=== PATIENT | female | born 1955 | race Two or more races ===

== ENCOUNTER 2018-02-25 15:42 | Inpatient (IN) | payer MEDICARE, MEDICAID ==
[~2018-02-25] VITALS: Ht 162.6 cm; Wt 83.9 kg
[2018-02-25] MEDS ORDERED: TRAZ-144 PO (16:18)
[2018-02-25] MEDS ORDERED: CHLO100T24 PO (16:18)
[2018-02-25] MEDS ORDERED: ESCI10TA55 PO (16:18)
[2018-02-25] MEDS ORDERED: HYDR-3026 PO ×2 (16:18→16:22)
[2018-02-25] MEDS ORDERED: LEVO25TA9 PO (16:18)
[2018-02-25 16:42] LABS: *BILIRUBIN,URIN NEGATIVE (NEGATIVE); *BLOOD, URINE NEGATIVE (NEGATIVE); *COLOR,URINE YELLOW (YELLOW); *KETONES,URINE NEGATIVE (NEGATIVE); *PROTEIN,URINE NEGATIVE (NEGATIVE); *UROBILINOGEN,URINE 0.2 E.U./dl (NORMAL); LEUKOCYTE ESTERASE ,URINE TRACE (NEGATIVE); NITRITE, URINE NEGATIVE (NEGATIVE); UGLUCOSE NEGATIVE (NEGATIVE)
[2018-02-25 16:46] LABS: BASOPHILS % (AUTO) 0.4 % (0.0-2.0); HEMATOCRIT 40.7 % (31.2-41.9); HEMOGLOBIN 13.8 g/dL (10.9-14.3); LYMPHOCYTES # (AUTO) 2.7 K/uL (20.0-40.0); MEAN CORPUSCULAR HEMOGLOBIN 28.7 uug (24.7-32.8); MEAN CORPUSCULAR HGB CONC 34 g/dL (32.3-35.6); MEAN CORPUSCULAR VOLUME 84.7 fL (75.5-95.3); MONOCYTES # (AUTO) 0.6 K/uL (2.0-10.0); MONOCYTES % (AUTO) 8.2 % (0.0-11.0); NEUTROPHILS % (AUTO) 54.4 % (38.5-71.5); PLATELET COUNT (AUTO) 268 K/uL (179-408); RED BLOOD CELL COUNT(AUTO) 4.81 MIL/uL (3.63-4.92); WHITE BLOOD COUNT (AUTO) 7.4 K/uL (3.8-11.8)
[2018-02-25 16:47] LABS: *AMPHETAMINE, URINE NEGATIVE (NEGATIVE); *BARBITURATE, URINE NEGATIVE (NEGATIVE); *CANNABINOID, URINE NEGATIVE (NEGATIVE); *COCCAINE, URINE NEGATIVE (NEGATIVE); *OPIATE, URINE NEGATIVE (NEGATIVE); *PHENCYCLIDINE SCREEN,URINE NEGATIVE (NEGATIVE)
[2018-02-25 16:51] LABS: CARBON DIOXIDE 29 mmol/L (21-32); CHLORIDE 103 mmol/L (98-107); CREATININE 0.9 mg/dL (0.6-1.3); GLUCOSE 107 mg/dL (74-106); POTASSIUM 3.8 mmol/L (3.5-5.1); UREA NITROGEN, BLOOD 17 mg/dL (7-18)
--- NOTE | 2018-02-25 16:53 | NUR ---
Patient is resting comfortably in bed with eyes closed, family at the bedside.
[2018-02-25 16:56] LABS: ALANINE AMINOTRANSFERASE 21 U/L (14-59); ALKALINE PHOSPHATASE 90 U/L (50-136); ASPARTATE AMINOTRANSFERASE 13 U/L (15-37); BILIRUBIN,DIRECT 0.1 mg/dL (0.0-0.2); BILIRUBIN,TOTAL 0.5 mg/dL (0.2-1.0); ETHANOL < 3 MG/DL (0-0); TOTAL PROTEIN, SERUM 7.4 g/dL (6.4-8.2)
[2018-02-25 16:57] LABS: ACETAMINOPHEN < 2.0 ug/mL (10-30)
[2018-02-25 17:06] LABS: *CLARITY,URINE SLIGHTLY HAZY (CLEAR)
[2018-02-25 17:09] LABS: BACTERIA,URINE FEW /HPF (NONE SEEN); MUCUS,URINE MANY /LPF (0-FEW); RBC,URINE 0-3 /HPF (0-3); SQUAMOUS EPITHELIAL CELL,UR MODERATE /HPF (NONE SEEN)
--- NOTE | 2018-02-25 17:12 | NUR ---
Pt is medically cleared by Dr Schaeffer. Anton Goff from [facility] called for psych eval ETA is one hour.
--- NOTE | 2018-02-25 17:18 | NUR ---
Pt offered food/fluids, drank 8 oz of water.
--- NOTE | 2018-02-25 18:25 | NUR ---
Anton Goff from [facility] at the bedside for psych eval.
--- NOTE | 2018-02-25 18:50 | NUR ---
PT PLACED ON HOLD BY [facility] AIR SAMPLER, 5150 GD.
--- NOTE | 2018-02-25 19:10 | NUR ---
SHIFT REPORT GIVEN TO BASIA ADKINS, I RELINQUISH CARE OF PT AT THIS TIME.
--- NOTE | 2018-02-25 21:00 | NUR ---
Report given to Reji ADKINS U.
[2018-02-25 22:15] VITALS: BP 137/79
[2018-02-25] MEDS ORDERED: MAGNESIUM HYDROXIDE 30 ML LIQUID UDC PO PRN (22:45)
[2018-02-25] MEDS ORDERED: MAG HYDROX/AL HYDROX/SIMETH 30 ML LIQUID UDC PO PRN (22:45)
[2018-02-25] MEDS ORDERED: ACETAMINOPHEN 325 MG TABLET PO PRN (22:45)
[2018-02-25] MEDS: TEMAZEPAM 7.5 MG CAPSULE PO PRN (23:31)
--- NOTE | 2018-02-26 00:30 | NUR ---
received to care, from the emergency room, on a 72 hour hold, for gravely disabled. according to the chart, she was brought in by her sister and brother in law, who are her caregivers. she has been non compliant with her medications, and increasing internal stimuli. she had been "on the road" with her family, traveling in an , for the last 6 months, and had been unable to secure psychiatric care, and her new medications have not been effective in controlling her bizarre, and sometimes violent behavior. she had also been unable to sleep, or eat properly. upon arrival, she was pleasant, but confused. oriented to name only. denied si, or desire to harm self. agreed to contract for safety, while in the hospital. stated she hears voices at times, but not presently. she says the voices tell her "bad things", but could not elaborate. she was assisted with a shower, and PM care. PRN restoril was given for insomnia, at 2331, and she went to bed. as of 29, she remains asleep. no distress noted. will continue to monitor closely.
--- NOTE | 2018-02-26 06:00 | NUR ---
slept 6.5 hours, total. continues to sleep. no distress noted.
[2018-02-26 07:30] VITALS: BP 132/75
--- NOTE | 2018-02-26 11:21 | NUR ---
Firearms Report: Asphalt Heater Operator completed and submitted [employer] Firearms Report on 02/26/18.
[2018-02-26] MEDS: LORAZEPAM 1 MG TABLET PO PRN ×2 (11:41→20:05)
--- NOTE | 2018-02-26 11:44 | NUR ---
Gps/Email Engineer- Extremely anxious, crying spells noted, requesting to have her clothes back, offered luke schneider, ativan 1 mg given po. compliance noted, continue to monitor safety, encouraged to continue to verbalized needs and feelings.
--- NOTE | 2018-02-26 15:57 | NUR ---
Initial Discharge Instructions: Patient has been living with her sister and [id number] for more than 20 years [[address] [place] [address]; [phone]]. Patient stated that she does not know where she will live when she is discharged. Spoke with patient's sister, Perri Valdovinos ([phone]) who states that the pt will need a more structured setting. Per sister, she reached out to Wilfredo at [facility] who found placement for the patient at [facility]. Pt's sister stated she would like the patient to go there upon discharge. SW will continue to collaborate with pt, family, and MD regarding appropriate discharge plans for this patient. SW will form a safe and proper discharge.
[2018-02-26 16:35] VITALS: BP 132/85
--- NOTE | 2018-02-26 17:32 | NUR ---
Gps/Refractory Furnace Designer- Dr Zhen Mosley ,was called, Dr Garnett television program director, left message, informed of the new admission , and the need to reconcile med.
[2018-02-26 20:00] VITALS: BP 125/84
[2018-02-26] MEDS: BENZTROPINE MESYLATE 1 MG TABLET PO SCH (21:56)
[2018-02-26] MEDS: HALOPERIDOL 5 MG TABLET PO SCH (21:56)
--- NOTE | 2018-02-26 22:00 | NUR ---
received to care, lying in bed, isolative, but pleasant upon approach. compliant with medications, and staff direction. PRN ativan was given at 2004, for anxiety. as of 2229, she appears to be asleep. no distress noted. will continue to monitor closely.
[2018-02-27] MEDS: LEVOTHYROXINE SODIUM 25 MCG TABLET PO SCH (06:20)
--- NOTE | 2018-02-27 06:41 | NUR ---
PT SLEPT 6.30 HOURS, PT WAS CALM AND COOPERATIVE WITH CARE, NO DISTRESS NOTED , ALL NEEDS MET, SAFETY MEASURES ARE IN PLACE, BED ALARM IS ON.
[2018-02-27 07:30] VITALS: BP 125/78
[2018-02-27 07:35] LABS: THYROID STIMULATING HORMONE 3.255 mIU/mL (0.358-3.740)
[2018-02-27] MEDS: BENZTROPINE MESYLATE 1 MG TABLET PO SCH ×3 (08:22→16:32)
[2018-02-27] MEDS: HALOPERIDOL 5 MG TABLET PO SCH ×3 (08:22→16:32)
[2018-02-27 16:02] VITALS: BP 99/51
--- NOTE | 2018-02-27 17:41 | NUR ---
Gps/Metal Grinder- Stayed in her bed most of the afternoon, was able to attend group therpyat the beginning , needed prompting and encouragement, smiles at times , compliant with her routine medications
--- NOTE | 2018-02-27 20:00 | NUR ---
PT LYING IN BED CALM, ALERT AWAKE IN NO ACUTE DISTRESS. DENIES ANY PAIN, DISCOMFORT, OR SOB. DENIES ANY SUICIDAL IDEATIONS AND STATES 'I'M OK'. PT REMINDED OF PLAN OF CARE AND TO REQUEST FOR ASSISTANCE IF NEEDED. ENCOURAGED FLUID INTAKE AND SAFETY PRECAUTIONS. PT VERBALIZED UNDERSTANDING. NO ROUTINE HS MEDICATION AT THIS TIME. WILL CONTINUE. TO MONITOR.
[2018-02-27 20:30] VITALS: BP 117/71
[2018-02-27] MEDS: TEMAZEPAM 7.5 MG CAPSULE PO PRN (21:00)
--- NOTE | 2018-02-28 06:00 | NUR ---
PT ABLE TO SLEEP UP TO 6 HRS OVERNIGHT. REMAINED CALMA ND QUIET THROUGHOUT SHIFT. NO EPISODES OF AGITATION OR INCREASED CONFUSION NOTED. REMINDED PT TO INFORM STAFF FOR ASSISTANCE. ENCOURAGED TO INCREASE FLUID INTAKE. WILL CONTINUE TO MONITOR.
[2018-02-28] MEDS: LEVOTHYROXINE SODIUM 25 MCG TABLET PO SCH (06:09)
[2018-02-28 07:30] VITALS: BP 124/75
[2018-02-28] MEDS: HALOPERIDOL 5 MG TABLET PO SCH ×3 (08:04→16:13)
[2018-02-28] MEDS: BENZTROPINE MESYLATE 1 MG TABLET PO SCH ×3 (08:04→16:13)
[2018-02-28 16:09] VITALS: BP 129/83
--- NOTE | 2018-02-28 16:36 | NUR ---
Gps/Jewel Stringer- Stayed in her room in bed most of the afternoon, refused to attend her group therapy, smiles from time to time, meds. compliant, needed encouragement, interacts when engage with limited word,
[2018-02-28 20:00] VITALS: BP 129/80
[2018-02-28] MEDS: TEMAZEPAM 7.5 MG CAPSULE PO PRN (20:48)
--- NOTE | 2018-02-28 21:00 | NUR ---
PT'S A/A/O X2-3,ON BED REST COMFORTABLY,DENIED OF PAIN AND COOPERATIVE WITH ASSISTANCE,PT STATED THAT"I'M OKAY".SAFETY REINFORCED,CONTINUED MONITORING TO PT.
--- NOTE | 2018-03-01 06:00 | NUR ---
PT SLEPT FOR 8.3 HOURS IN THE SHIFT,COMPLAINT WITH MEDICATION AND ASSISTANCE.NO DISTRESS NOTED IN THE SHIFT.PT REMAINED FREE FROM INJURY NOTED.
[2018-03-01] MEDS: LEVOTHYROXINE SODIUM 25 MCG TABLET PO SCH (06:27)
[2018-03-01 07:30] VITALS: BP 129/87
[2018-03-01] MEDS: HALOPERIDOL 5 MG TABLET PO SCH ×3 (08:13→16:01)
[2018-03-01] MEDS: BENZTROPINE MESYLATE 1 MG TABLET PO SCH ×3 (08:13→16:01)
[2018-03-01 15:43] VITALS: BP 131/83
--- NOTE | 2018-03-01 15:59 | NUR ---
PT IS STANDING IN THE HALLWAY NEAR THE MAIN ENTRANCES DOOR TALKING TO HER SELF ,UPON APPROACH SHE DO NOT WANT TO TALK AND REFUSED TO MOVE FROM THE HALLWAY,CHARGE NURSE MADE AWARE,
[2018-03-01] MEDS: LORAZEPAM 1 MG TABLET PO PRN (16:04)
[2018-03-01 20:00] VITALS: BP 131/79
--- NOTE | 2018-03-01 20:30 | NUR ---
Start of Shift: Alert to name and date reoriented to situation and place. Lying in bed isolative in room speech is clear but limited. Denies SI,HI,A/H or v/h. Mood anxious affect Flat. Encoruage to vebalize feeling and Focus on reality cont to observe q 30 min checks for safety.
[2018-03-02] MEDS: LEVOTHYROXINE SODIUM 25 MCG TABLET PO SCH (06:05)
--- NOTE | 2018-03-02 06:42 | NUR ---
End of Shift: PT SLEPT FOR 8.3 HOURS IN THE SHIFT.MOSTLY Lying in bed resting comfortably.Medication compliant with am meds .NO DISTRESS NOTED IN THE SHIFT. No acting out during the shift.
[2018-03-02 07:30] VITALS: BP 131/96
[2018-03-02] MEDS: BENZTROPINE MESYLATE 1 MG TABLET PO SCH ×3 (08:18→20:55)
[2018-03-02] MEDS: HALOPERIDOL 5 MG TABLET PO SCH ×3 (08:18→20:56)
[2018-03-02 16:15] VITALS: BP 152/89
[2018-03-02 20:30] VITALS: BP 140/66
[2018-03-03] MEDS: LEVOTHYROXINE SODIUM 25 MCG TABLET PO SCH (06:20)
[2018-03-03 07:30] VITALS: BP 124/52
[2018-03-03] MEDS: HALOPERIDOL 5 MG TABLET PO SCH ×3 (08:21→21:17)
[2018-03-03] MEDS: BENZTROPINE MESYLATE 1 MG TABLET PO SCH ×3 (08:21→21:17)
[2018-03-03] MEDS: LORAZEPAM 1 MG TABLET PO PRN (11:31)
--- NOTE | 2018-03-03 11:32 | NUR ---
PT IS STANDING IN THE HALLWAY TALKING TO HER SELF ,UPON APPROACH SHE DO NOT WANT TO TALK AND REFUSED TO MOVE FROM THE HALLWAY,CHARGE NURSE MADE AWARE,ativan 1mg po given per md orders
[2018-03-03 15:22] VITALS: BP 100/53
--- NOTE | 2018-03-03 20:00 | NUR ---
Received patient in bed, sleeping, easily arouses to name. No acute distress noted. Appears calm but withdrawn. Answers questions with few words. Denies S/I. States "I am ok." Treatment and plan of care discussed with patient. Verbalized understanding. Feeling cold; extra blankets provided. Safety precautions emphasized. Will continue to monitor. Addendum: 03/03/18 at 2311 by MARIE ROMAN RN Amended: Links added.
[2018-03-03 20:22] VITALS: BP 135/72
[2018-03-04] MEDS: LEVOTHYROXINE SODIUM 25 MCG TABLET PO SCH (06:03)
--- NOTE | 2018-03-04 06:13 | NUR ---
Cooperative and compliant with am care and medication. Slept 9 hours. Patient denies hearing any voices. Still appears withdrawn. Safety precautions maintained.
[2018-03-04 08:00] VITALS: BP 123/75
[2018-03-04] MEDS: HALOPERIDOL 5 MG TABLET PO SCH ×3 (10:10→20:27)
[2018-03-04] MEDS: BENZTROPINE MESYLATE 1 MG TABLET PO SCH ×3 (10:10→20:27)
[2018-03-04 16:00] VITALS: BP 109/64
--- NOTE | 2018-03-04 20:30 | NUR ---
RECEIVED PATIENT IN HER ROOM, SHE IS NOTED A/O X 2. SHE IS ABLE TO AMBULATE WITH STEADY GAIT. SHE IS NOTED WITHDRAWN TO HER ROOM; HOWEVER, SHE IS ABLE TO MAKE EYE CONTACT, SMILE AND ANSWER QUESTION WILLINGLY. SHE IS NOTED WITH FAIR INSIGHT AND JUDGEMENT. SHE DENIES HEARING VOICES, FITZ SI/HI. ABLE TO CFS. SHE IS COMPLIANT WITH MEDICATION REGIMENT, DIET AND PLAN OF CARE. SAFETY EMPHASIS. WILL CONTINUE TO MONITOR CLOSELY.
[2018-03-05] MEDS: LEVOTHYROXINE SODIUM 25 MCG TABLET PO SCH (06:00)
--- NOTE | 2018-03-05 06:28 | NUR ---
PATIENT SLEPT FOR APPROX 8.0 HRS THROUGH THE NIGHT. SHE IS NOTED PLEASANT AND COOPERATIVE WITH MEDICATION REGIMENT DIET AND PLAN OF CARE.
[2018-03-05 07:30] VITALS: BP 113/82
[2018-03-05] MEDS: HALOPERIDOL 5 MG TABLET PO SCH ×3 (08:35→16:51)
[2018-03-05] MEDS: BENZTROPINE MESYLATE 1 MG TABLET PO SCH ×3 (08:36→16:51)
--- NOTE | 2018-03-05 08:55 | NUR ---
RECEIVED PATIENT IN HER ROOM, A/O X 2. SHE IS ABLE TO AMBULATE WITH STEADY GAIT. Pt IS NOTED TO BE WITHDRAWN AND DOES NOT WANT TO TALK OR RESPOND TO QUESTIONS. COMPLIANT WITH MEDS AND CARE STAFF. REFUSES TO ATTEND AND PARTICIPATE IN GROUP ACTIVITIES. WILL CONTINUE TO MONITOR Pt THROUGHOUT SHIFT.
[2018-03-05] MEDS ORDERED: HALOPERIDOL 1 MG TABLET PO SCH (09:00)
[2018-03-05 14:35] VITALS: BP 118/50
[2018-03-05 20:09] VITALS: BP 138/66
[2018-03-06] MEDS: LEVOTHYROXINE SODIUM 25 MCG TABLET PO SCH (06:14)
--- NOTE | 2018-03-06 06:37 | NUR ---
GPS: REMAIN ISOLATIVE.SHOWERED THIS MORNING.SLEPT 9 HRS THROUGH THE NIGHT. NO C/O PAIN OR DISCOMFORT AT THIS TIME. LAYING IN BED COMFORTABLY.NO AGITATION NOTED. CONTINUE PLAN OF CARE.
[2018-03-06 08:18] VITALS: BP 135/84
[2018-03-06] MEDS: BENZTROPINE MESYLATE 1 MG TABLET PO SCH ×3 (09:26→17:10)
[2018-03-06] MEDS: HALOPERIDOL 5 MG TABLET PO SCH ×3 (09:26→17:10)
--- NOTE | 2018-03-06 09:30 | NUR ---
RECEIVED PATIENT IN HER BED, AWAKE, A/O X 2. SHE IS ABLE TO AMBULATE WITH STEADY GAIT. Pt IS NOTED TO BE WITHDRAWN AND DOES NOT WANT TO TALK OR RESPOND TO QUESTIONS. Pt APPEARS TO BE RESTLESS BUT WITHOUT ANY AGGRESSIVE OR HOSTILE BEHAVIORS NOTED. COMPLIANT WITH MEDS AND CARE STAFF. REFUSES TO ATTEND AND PARTICIPATE IN GROUP ACTIVITIES, AND CONTINUES TO STAY IN BED. WILL CONTINUE TO MONITOR Pt THROUGHOUT SHIFT.
[2018-03-06 15:50] VITALS: BP 104/71
[2018-03-06 19:56] VITALS: BP 118/78
[2018-03-07] MEDS: LEVOTHYROXINE SODIUM 25 MCG TABLET PO SCH (06:00)
[2018-03-07] MEDS: LORAZEPAM 1 MG TABLET PO PRN ×2 (06:23→10:28)
--- NOTE | 2018-03-07 06:51 | NUR ---
RECEIVED Pt IN BED SLEEPING, AROUSES EASILY. A+Ox2 TO SELF AND PLACE, POOR INSIGHT INTO REASON FOR ADMISSION AND MENTAL CONDITION. Pt IS GUARDED, AND GIVES LIMITED DISCLOSURE. Pt EXHIBITS RESTRICTED AFFECT AND THOUGHT BLOCKING, APPEARS DEPRESSED AND WITHDRAWN. Pt HAS EPISODES OF HYPERVIGILANCE, SHE WILL SCAN THE HALLWAYS INTENTLY AT TIMES, APPEARS INTERNALLY PREOCCUPIED. DENIES SI/HI, CFS. Pt AWOKE EARLY IN THE MORNING AND BEGAN PACING THE HALLWAY. SUDDENLY AND WITHOUT PROVOCATION, Pt BEGAN CRYING HYSTERICALLY. SEVERAL STAFF ATTEMPTED TO HELP HER AND FIND OUT WHAT WAS WRONG, WHICH ONLY SEEMED TO ESCALATE THE Pts ERRATIC BEHAVIOR. Pt BECAME EVEN LOUDER AND ATTEMPTED TO STRIKE AT THE NURSE. PRN ATIVAN 1mg OFFERED TO Pt WHICH WAS INITIALLY REFUSED, BUT Pt TOOK IT AFTER SEVERAL PROMPTS. Pt THEN STATED SHE WAS CRYING BECAUSE SHE THOUGHT STAFF WAS STEALING HER PERSONAL ITEMS. Pt WAS REASSURED HER ITEMS SHE CAME WITH WERE IN HER LOCKER, THEN Pt BECAME UPSET WHEN SHE WAS NOT ALLOWED TO HAVE HER TWEEZERS AND LIP GLOSSES. Pt WAS ESCORTED BACK TO HER ROOM WHERE SHE REMAINS CRYING, BUT HAS CALMED SOMEWHAT. SLEPT 6.30 HOURS.
[2018-03-07 08:00] VITALS: BP 147/82
[2018-03-07] MEDS: BENZTROPINE MESYLATE 1 MG TABLET PO SCH ×3 (09:14→17:09)
[2018-03-07] MEDS: HALOPERIDOL 5 MG TABLET PO SCH ×3 (09:14→17:09)
--- NOTE | 2018-03-07 10:11 | NUR ---
RECEIVED Pt IN BED SLEEPING BUT EASILY AROUSED, A/O X 2, Pt DOES NOT TALK MUCH AND HOLDS CONVERSATIONS TO A MINIMUM. Pt COMPLIANT WITH MEDS AND CARE STAFF, TOOK ALL MEDS THIS MORNING, NO AGGRESSIVE BEHAVIORS NOTED. Pt GOT OUT OF BED AROUND 0955 AND WAS SEEN PACING IN A ASSINIBOINE AND [place] IN THE HALLWAY. WHEN ASSESSED AND ASKED BY NURSE HOW SHE IS FEELING, Pt STATED, "I'M OKAY." NOTED ANXIETY AND TREMBLING, DENIED ANY HALLUCINATIONS AND NO DELUSIONS PRESENT DURING ASSESSMENT. OFFERED AND ADMINISTERED ATIVAN 1 MG PO PRN PER MD ORDER AT THIS TIME. WILL CONTINUE TO MONITOR Pt BEHAVIOR CLOSELY.
--- NOTE | 2018-03-07 13:25 | NUR ---
Pt HAS BEEN CALMER AND LESS ANXIOUS SINCE RECEIVING ATIVAN PO PRN THIS MORNING. Pt ATE LUNCH AND TOOK ALL PRESCRIBED ROUTINE MEDICATIONS THIS AFTERNOON. REMAINS COMPLIANT AND COOPERATIVE WITH MEDS, DIET, AND CARE STAFF.
[2018-03-07 16:30] VITALS: BP 130/81
[2018-03-07 20:00] VITALS: BP 130/68
[2018-03-08] MEDS: LEVOTHYROXINE SODIUM 25 MCG TABLET PO SCH (06:01)
[2018-03-08 07:30] VITALS: BP 137/81
[2018-03-08] MEDS: BENZTROPINE MESYLATE 1 MG TABLET PO SCH ×3 (09:07→16:57)
[2018-03-08] MEDS: HALOPERIDOL 5 MG TABLET PO SCH ×3 (09:07→16:57)
[2018-03-08] MEDS: LORAZEPAM 1 MG TABLET PO PRN ×3 (11:15→16:57)
--- NOTE | 2018-03-08 11:32 | NUR ---
Noted pt standing in the hallway near the nurse's station, responding to inner stimuli and crying. When asked if she is okay and what are the voices telling her, pt became severely agitated and attempted to strike out at staff. Offered Ativan 1mg PO PRN and explained to pt that it will help her calm down, however pt attempted to strike at the medication to throw it on the floor. Pt walked back to her room and laid on her bed. Called Dr. Lutz and obtained order for Benadryl IM, Ativan IM, and Haldol IM due to pt's behavior that is putting herself and the staff at risk for injury.
[2018-03-08] MEDS ORDERED: HALOPERIDOL LACTATE 5 MG/1 ML VIAL IM ONE (11:45)
[2018-03-08] MEDS ORDERED: diphenhydrAMINE 50 MG/1 ML VIAL IM ONE (11:45)
[2018-03-08] MEDS ORDERED: LORAZEPAM 2 MG/1 ML VIAL IM ONE (11:45)
--- NOTE | 2018-03-08 12:00 | NUR ---
Pt laying in bed with her eyes open. Breathing even and unlabored. Anxious affect. Mood agitated. No acute distress noted. Will continue to monitor.
[2018-03-08 15:39] VITALS: BP 115/68
--- NOTE | 2018-03-08 18:51 | NUR ---
Pt without further episodes of attempting to strike out at staff. Pt remained in her room for the rest of the shift. Pt took due meds post episode. No adverse side effects noted from chemical restraints. Tolerated well. No change in LOC. All needs met at this time. Will continue to monitor.
[2018-03-08 20:00] VITALS: BP 112/64
--- NOTE | 2018-03-08 20:00 | NUR ---
RECEIVED PATIENT IN HER ROOM IN BED ASLEEP BUT EASILY AROUSAL TO NAME. PATIENT REFUSED TO TALK TO THIS BOX CLOSING MACHINE OPERATOR AND REFUSED ASSESSMENT. SHE THEN WENT BACK TO SLEEP. PATIENT DOES NOT HAVE ANY SCHEDULED QHS MEDICATION AT THIS TIME. SAFETY WAS EMPHASIS. WILL CONTINUE TO MONITOR CLOSELY.
[2018-03-09] MEDS: LEVOTHYROXINE SODIUM 25 MCG TABLET PO SCH (06:00)
[2018-03-09] MEDS: LORAZEPAM 1 MG TABLET PO PRN (06:24)
--- NOTE | 2018-03-09 06:30 | NUR ---
patient slept for approx 9.0 hrs through the night. She was noted standing in the hallway, moving her body body back and fort. Patient was offered Ativan for anxiety and she agreed. Ativan 1mg PO PRN was given for anxiety.
[2018-03-09] MEDS: DIVALPROEX 250 MG TABLET.DR PO SCH ×3 (10:09→16:55)
[2018-03-09] MEDS: HALOPERIDOL 5 MG TABLET PO SCH ×3 (10:09→16:55)
[2018-03-09] MEDS: BENZTROPINE MESYLATE 1 MG TABLET PO SCH ×3 (10:09→16:55)
[2018-03-09 15:24] VITALS: BP 131/64
--- NOTE | 2018-03-09 18:25 | NUR ---
patient remains labvile in behavior with no self disclousure , pacing the halls looking dazed then to bed , oral intake qs continue to monitor for safety
[2018-03-09 20:00] VITALS: BP 142/91
--- NOTE | 2018-03-09 20:30 | NUR ---
RECEIVED PATIENT IN HER ROOM. SHE IS NOTED A/O X 2, SHE IS ABLE TO AMBULATED WITH STEADY GAIT AND ABLE TO MAKE HER NEEDS KNOWN. PATIENT CONTINUE WITHDRAWN TO HER ROOM. LOW MOOD, BLUNTED AFFECT. SHE DENIES SI, DENIES AH/V/A AT THIS TIME. SHE IS ABLE TO COMPLY WITH MEDICATION REGIMENT DIET AND PLAN OF CARE. SAFETY EMPHASIS. WILL CONTINUE TO MONITOR CLOSELY.
[2018-03-09] MEDS: ARIPIPRAZOLE 5 MG TABLET PO SCH (20:58)
[2018-03-10] MEDS: LEVOTHYROXINE SODIUM 25 MCG TABLET PO SCH (06:12)
--- NOTE | 2018-03-10 06:23 | NUR ---
PATIENT WAS NOTED SCRATCHING HER RIGHT ELBOW, UPON ASSESSMENT, A RED RASH NOTED IN RIGHT ELBOW POSTERIOR ASPECT AND A MILD RASH STARING ON HER LEFT ELBOW POSTERIOR ASPECT. WILL ENDORSE TO INCOMING SHIFT TO HAVE HER DOCTOR EVALUATED. WILL CONTINUE TO MONITOR.
--- NOTE | 2018-03-10 07:00 | NUR ---
RECEIVED REPORT FROM WORKERS COMPENSATION CLAIMS SUPERVISOR NURSE. PATIENT IN BED ASLEEP. NO ACUTE DISTRESS NOTED. RESPIRATIONS EVEN AND UNLABORED. COMPLIANT WITH MEDICATION AND CARE. NO COMPLAINTS OF PAIN AND DISCOMFORT AT THIS TIME. COMFORT MEASURES PROVIDED. SAFETY PRECS OBSERVED AT ALL TIMES WILL CONTINUE TO MONITOR CLOSELY.
[2018-03-10 07:30] VITALS: BP 113/69
[2018-03-10] MEDS: BENZTROPINE MESYLATE 1 MG TABLET PO SCH ×3 (09:47→17:08)
[2018-03-10] MEDS: ARIPIPRAZOLE 5 MG TABLET PO SCH ×2 (09:47→20:16)
[2018-03-10] MEDS: HALOPERIDOL 5 MG TABLET PO SCH ×3 (09:47→17:08)
[2018-03-10] MEDS: DIVALPROEX 250 MG TABLET.DR PO SCH ×3 (09:48→17:08)
[2018-03-10 14:41] VITALS: BP 100/64
--- NOTE | 2018-03-10 21:15 | NUR ---
RECEIVED Pt IN BED SLEEPING BUT EASILY AROUSED, A/O X 2, Pt DOES NOT TALK MUCH AND HOLDS CONVERSATIONS TO A MINIMUM. Pt COMPLIANT WITH MEDS AND CARE STAFF, NO AGGRESSIVE BEHAVIORS NOTED. Pt WAS SEEN PACING ON THE HALLWAY AND ASKED BY NURSE HOW SHE IS FEELING, Pt STATED, "I'M OKAY" AND WENT BACK TO BED. NO ANXIETY PRN MEDS NEEDED, DENIES SI, AGREES TO CFS.
[2018-03-10 21:54] VITALS: BP 124/73
--- NOTE | 2018-03-11 06:32 | NUR ---
Pt SLEPT EARLY LAST NIGHT IMMEDIATELY AFTER NIGHT MEDS WERE ADMINISTERED. Pt SLEPT WELL THROUGHOUT THE NIGHT AND WOKE UP AT 0400. USUAL BEHAVIOR NOTED, Pt WAS STANDING OUTSIDE OF ROOM AND WALKS DOWN HALLWAY NEXT TO NURSE'S STATION BEING HYPERVIGILANT AND OBSERVANT. Pt DENIES ANXIETY OR PAIN, NO DISTRESS OR DISCOMFORT NOTED. Pt WENT BACK TO BED AGAIN.
--- NOTE | 2018-03-11 07:00 | NUR ---
RECEIVED REPORT FROM MANAGER TECHNICAL SERVICES NURSE. PATIENT IN BED ASLEEP NO ACUTE DISTRESS NOTED. NO AGITATION. CONTINUES TO BE COMPLIANT WITH MEDICATIONS. NO C/O PAIN/DISCOMFORT. COMFORT MEASURES PROVIDED. WILL CONTINUE TO MONITOR
[2018-03-11] MEDS: LEVOTHYROXINE SODIUM 25 MCG TABLET PO SCH (07:10)
[2018-03-11 08:00] VITALS: BP 116/72
[2018-03-11] MEDS: DIVALPROEX 250 MG TABLET.DR PO SCH ×3 (08:23→16:48)
[2018-03-11] MEDS: BENZTROPINE MESYLATE 1 MG TABLET PO SCH ×3 (08:23→16:48)
[2018-03-11] MEDS: HALOPERIDOL 5 MG TABLET PO SCH ×3 (08:23→16:48)
[2018-03-11] MEDS: ARIPIPRAZOLE 5 MG TABLET PO SCH (08:23)
[2018-03-11 16:25] VITALS: BP 116/76
--- NOTE | 2018-03-11 18:15 | NUR ---
PATIENT RECEIVED IN ROOM, LYING DOWN,. NO ACUTE DISTRESS NOTED. TENDS TO BE ISOLATIVE. NO EPISODES OF AGITATION THROUGHOUT SHIFT. COMPLIANT WITH MEDICATION ATE DINNER WITH GOOD APPETITE. SHOWERED TODAY. ALL NEEDS ATTENDED AND ANTICIPATED.
[2018-03-11 20:00] VITALS: BP 111/61
[2018-03-11] MEDS: ARIPIPRAZOLE 10 MG TABLET PO SCH (20:30)
[2018-03-11] MEDS: DIVALPROEX 500 MG TABLET.DR PO SCH (20:30)
[2018-03-12] MEDS: LEVOTHYROXINE SODIUM 25 MCG TABLET PO SCH (06:01)
--- NOTE | 2018-03-12 06:42 | NUR ---
GPS: REMAIN CALM AND COOPERATIVE WITH MEDICATIONS AND CARE. Pt SLEPT 6:30 HRS THROUGHOUT NIGHT . PATIENT USUAL BEHAVIOR NOTED, PATIENT WAS STANDING OUTSIDE OF ROOM AND WALKS DOWN HALLWAY NEXT TO NURSE'S STATION BEING HYPERVIGILANT AND OBSERVANT. Pt DENIES ANXIETY OR PAIN, NO DISTRESS OR DISCOMFORT NOTED. CONTINUE PLAN OF CARE.
[2018-03-12 07:30] VITALS: BP 111/71
--- NOTE | 2018-03-12 07:35 | NUR ---
PT IS STANDING IN THE HALLWAY TALKING TO HER SELF ,PT IS ALERT TO HER SELF TOOK HER MEDS
[2018-03-12] MEDS: DIVALPROEX 250 MG TABLET.DR PO SCH ×2 (08:05→12:09)
[2018-03-12] MEDS: ARIPIPRAZOLE 5 MG TABLET PO SCH (08:05)
[2018-03-12] MEDS: HALOPERIDOL 5 MG TABLET PO SCH ×3 (08:05→16:04)
[2018-03-12] MEDS: BENZTROPINE MESYLATE 1 MG TABLET PO SCH ×3 (08:05→17:05)
[2018-03-12 15:04] VITALS: BP 117/68
[2018-03-12 20:09] VITALS: BP 101/45
[2018-03-12] MEDS: DIVALPROEX 500 MG TABLET.DR PO SCH (20:15)
[2018-03-12] MEDS: ARIPIPRAZOLE 10 MG TABLET PO SCH (20:15)
--- NOTE | 2018-03-12 21:15 | NUR ---
RECEIVED Pt IN BED, SLEEPING BUT EASILY AROUSED, Pt IS COMPLIANT WITH MEDS AND CARE STAFF. Pt IS COOPERATIVE, CALM, AND PLEASANT. NO AGGRESSIVE BX OR DISTRESS NOTED, DENIES PAIN OR DISCOMFORT. Pt WENT BACK TO SLEEP AFTER TAKING NIGHT MEDS.
[2018-03-13] MEDS ORDERED: TEMAZEPAM 7.5 MG CAPSULE PO PRN (01:45)
--- NOTE | 2018-03-13 01:53 | NUR ---
Pt WOKE UP AT AROUND 0145 PACING HALLWAY NEXT TO NURSE'S STATION. ASKED Pt WHAT'S GOING ON, Pt STATED, "I CAN'T SLEEP." OFFERED AND ADMINISTERED RESTORIL 7.5 MG PO PRN. WILL REASSESS Pt IN AN HOUR FOR MEDICATION EFFECTIVENESS.
[2018-03-13] MEDS: LEVOTHYROXINE SODIUM 25 MCG TABLET PO SCH (06:27)
--- NOTE | 2018-03-13 06:49 | NUR ---
Pt SLEPT WELL SINCE SHE WAS GIVEN THE RESTORIL. WOKE UP @ AROUND 0500 AND AGREED TO SHOWER. NO AGGRESSIVE BX NOTED, IN STABLE CONDITION.
[2018-03-13 07:30] VITALS: BP 123/64
--- NOTE | 2018-03-13 07:30 | NUR ---
Shift report given by nightshift RN. Pt in fair condition at this time. Pt standing in hallway looking around. Mood hypervigilant. No SOB. No s/s of pain or discomfort. Per report, pt has been compliant with her medication regimen. Will continue to monitor for change.
[2018-03-13] MEDS: ARIPIPRAZOLE 5 MG TABLET PO SCH (08:15)
[2018-03-13] MEDS: BENZTROPINE MESYLATE 1 MG TABLET PO SCH ×3 (08:15→16:38)
[2018-03-13] MEDS: HALOPERIDOL 5 MG TABLET PO SCH ×3 (08:15→16:38)
[2018-03-13] MEDS: DIVALPROEX 250 MG TABLET.DR PO SCH ×2 (08:15→12:18)
[2018-03-13] MEDS: LORAZEPAM 1 MG TABLET PO PRN (09:19)
[2018-03-13 16:39] VITALS: BP 109/69
--- NOTE | 2018-03-13 17:25 | NUR ---
Pt remained in fair condition during shift. Pt continues to be compliant with taking all her medications. Continues to be seclusive and withdrawn. Prefers to stay in her room most of the time. Does not interact with peers and is still responding to internal stimuli. Denies pain. No acute distress noted. Able to provide basic self-care with prompting as needed. All needs met at this time. Will continue to monitor for change.
[2018-03-13 20:30] VITALS: BP 105/55
[2018-03-13] MEDS: ARIPIPRAZOLE 10 MG TABLET PO SCH (20:57)
[2018-03-13] MEDS: DIVALPROEX 500 MG TABLET.DR PO SCH (20:58)
--- NOTE | 2018-03-13 22:48 | NUR ---
received patient resting in bed at beginning of shift. compliant with medications. continue to be withdrawn and isolative. Prefers to stay in the room. dont want to mingle with other patients in the dayroom. ambulatory. continent of bowel and bladder. No signs of delusions. No agitation nor any restlessness noted. vital signs taken and recorded. BP 105/55 HR 79 resp 18 pulse ox 100% RA Afebrile. fall precautions maintained. making needs known.will monitor patient.
[2018-03-14] MEDS: LORAZEPAM 1 MG TABLET PO PRN ×2 (04:03→08:59)
--- NOTE | 2018-03-14 05:32 | NUR ---
had an episode of becoming agitated and manipulative. ativan given as ordered. getting very irritated and annoyed. took the ativan and back to bed and sleep.
[2018-03-14] MEDS: LEVOTHYROXINE SODIUM 25 MCG TABLET PO SCH (06:33)
--- NOTE | 2018-03-14 07:20 | NUR ---
Shift report given by nightshift RN. Pt without significant change in condition during noc shift. Rec'd pt in bed awake, in no acute distress noted. Does not seem to be responding to internal stimuli. Appears calm. Rec'd Ativan PRN during noc shift for agitation. Will monitor for further episodes of agitation and behavioral manifestations.
[2018-03-14 07:30] VITALS: BP 100/63
[2018-03-14] MEDS: BENZTROPINE MESYLATE 1 MG TABLET PO SCH ×3 (07:57→16:45)
[2018-03-14] MEDS: DIVALPROEX 250 MG TABLET.DR PO SCH ×2 (07:57→13:08)
[2018-03-14] MEDS: HALOPERIDOL 5 MG TABLET PO SCH ×3 (07:57→16:45)
[2018-03-14] MEDS: ARIPIPRAZOLE 5 MG TABLET PO SCH (07:57)
[2018-03-14 15:31] VITALS: BP 124/86
--- NOTE | 2018-03-14 17:56 | NUR ---
Pt remained in fair condition during shift. Noted anxious and pacing hallways in the beginning of shift. Anxiety managed with PRN Ativan PO. Denies auditory/visual however still noted responding to internal stimuli. Appears hypervigilant and elated. Continues to be isolative and paces back and forth from dayroom to her room. In no acute distress noted. Denies pain. Will continue to monitor for change.
[2018-03-14] MEDS: ARIPIPRAZOLE 10 MG TABLET PO SCH (20:16)
[2018-03-14] MEDS: DIVALPROEX 500 MG TABLET.DR PO SCH (20:16)
[2018-03-14 20:40] VITALS: BP 124/64
--- NOTE | 2018-03-15 05:53 | NUR ---
GPS:Pt remaine calm and cooperative during shift. compliant with all her medications. isolative Prefers to stay in her room most of the time. Does not interact with peers and is still responding to internal stimuli. Denies pain. No acute distress noted. slept 7 hrs through the night. Able to provide basic self-care with prompting as needed. All needs met at this time. Will continue to monitor for change.
[2018-03-15] MEDS: LEVOTHYROXINE SODIUM 25 MCG TABLET PO SCH (06:26)
[2018-03-15 07:30] VITALS: BP 113/67
--- NOTE | 2018-03-15 07:32 | NUR ---
GPS: Shift report given by nightshift IMPLEMENTATION SPECIALIST PAYROLL. Pt without significant change in condition during noc shift. Rec'd in bed, asleep. Easily arousable to name. In fair condition. Appears comfortable. Will monitor for change.
[2018-03-15] MEDS: DIVALPROEX 250 MG TABLET.DR PO SCH (08:08)
[2018-03-15] MEDS: HALOPERIDOL 5 MG TABLET PO SCH (08:08)
[2018-03-15] MEDS: ARIPIPRAZOLE 5 MG TABLET PO SCH (08:08)
[2018-03-15] MEDS: LORAZEPAM 1 MG TABLET PO PRN (08:08)
[2018-03-15] MEDS: BENZTROPINE MESYLATE 1 MG TABLET PO SCH (08:08)
--- NOTE | 2018-03-15 11:15 | NUR ---
DC Note: Patient will be discharged to [facility] [[address] [place] [address]; [phone]] via ambulance. Spoke with Brendon at the facility who states they are ready to accept the patient today. Left message for patient's sister, Perri ([phone]) to alert about patient's discharge plan. Patient is aware and agreeable with discharge plans. Patient will follow-up at the facility with Dr. Garnett (Cafeteria Table Attendant) and Dr. Calzada (Psychiatrist).
--- NOTE | 2018-03-15 12:55 | NUR ---
Pt leaving facility via gurney accompanied by x2 [facility] Paramedics. Left in fair condition. No s/s of acute distress noted. Denies SI/HI, CFS. Did not appear to be responding to internal stimuli. Took all due meds. A&Ox2. On RA, no SOB. BM current. Report given to Ulisses ADKINS Front Maker Lockstitch of [facility] at .
== END 2018-03-15 14:03 | DRG 885 ==
LOC: ER 15:42 → EDBD 15:42 → GPS 21:54
PROVIDERS: ADMIT Psychiatry & Neurology Psychiatry; ATTEND Internal Medicine
DX: F20.0 Paranoid schizophrenia (principal); Z91.14 Patient's other noncompliance with medication regimen; E03.9 Hypothyroidism, unspecified; F31.9 Bipolar disorder, unspecified; G47.00 Insomnia, unspecified; Z79.899 Other long term (current) drug therapy
CPT/HCPCS: 36415; 71045; 80164; 80307; 82746; 84443; 85025; 86592; 87086; 93005; A4663; G0480; G0480-TC; J1200; J1630; J2060; J3490